=== PATIENT | female | born 1995 | race Two or more races ===

== ENCOUNTER 2018-06-18 08:55 | Inpatient (IN) | payer OTHER ==
[~2018-06-18] VITALS: Ht 154.9 cm; Wt 58.7 kg
[2018-06-18] VITALS (8 sets, daily range): BP systolic 95–112; BP diastolic 43–71
[~2018-06-18 08:55] MED LIST: GABAPENTIN100 MG ORAL; JUNEL FE 1.5 M1 EACH PO; NORCO 10/3251 EA ORAL; ceFAZolin sod 1 GM in NS 55 ML IVPB ONE
--- NOTE | 2018-06-18 10:31 | Pre-Procedure Note/Attestation ---
Pre-Procedure Note/Attestation Complete Prior to Procedure Procedure Narrative: L5S1 R redo lami/discectomy Indications for Procedure Pre-Operative Diagnosis: SP r L5S1 laminectomy with recurrent HNP Attestation I attest that I discussed the nature of the procedure; its benefits; risks and complications; and alternatives (and the risks and benefits of such alternatives ), prior to the procedure, with the patient (or the patient's legal benefits representative). I attest that, if there was a reasonable possibility of needing a blood transfusion, the patient (or the patient's legal benefits representative) was given the [facility] standardized written summary, pursuant to the [place] Blood Safety Act ([place] Health and Safety Code # 1645, as amended). I attest that I re-evaluated the patient just prior to the surgery and that there has been no change in the patient's H&P, except as documented below: Fermin Meeks MD Jun 18, 2018 10:31
[2018-06-18] MEDS ORDERED: Thrombin 5000 units spray kit TOPIC ONE (10:54)
[2018-06-18] MEDS ORDERED: Bupivacaine w/Epi 0.5% 30ml Vial INJ ONE (10:54)
[2018-06-18] MEDS ORDERED: Thrombin 5000 units TOPIC ONE (10:54)
[2018-06-18] MEDS ORDERED: Vancomycin 1gm vial IVPB ONE (10:54)
[2018-06-18] MEDS ORDERED: Gelfoam Size TOPIC ONE (10:54)
[2018-06-18] MEDS ORDERED: Gelfoam Absorbable 1gm powder pkt TOPIC ONE (10:55)
[2018-06-18] MEDS ORDERED: Bacitracin 50000 Units Vial ONE (10:55)
[2018-06-18] MEDS ORDERED: Lidocaine 1% MPF 10mg/ml 5ml ONE (11:49)
[2018-06-18] MEDS ORDERED: fentaNYL 100 mcg/2 mL IV ONE (11:51)
[2018-06-18] MEDS ORDERED: NS Irrig 1000ml IRRIG ONE (11:57)
[2018-06-18] MEDS ORDERED: Sterile Water Irrig 1000ml IRRIG ONE (12:00)
[2018-06-18] MEDS ORDERED: Neostigmine 1mg/ml 10ml Inj ONE (12:00)
[2018-06-18] MEDS ORDERED: Propofol 1,000mg/ 100ml btl IV ONE (12:00)
[2018-06-18] MEDS ORDERED: LR 1000ml ONE (12:00)
[2018-06-18] MEDS ORDERED: LR 1000ml 1,000 ML IVLG SCH (12:27)
[2018-06-18] MEDS ORDERED: Labetalol 5mg/ml 20ml vial IV PRN (12:30)
[2018-06-18] MEDS ORDERED: oxyCODONE HCL/Acetaminophen 5/325mg ORAL PRN (12:30)
[2018-06-18] MEDS ORDERED: Hydromorphone 0.5mg/0.5ml inj IVP PRN (12:30)
[2018-06-18] MEDS ORDERED: Metoclopramide 10mg/2ml Inj IVP PRN ×2 (12:30)
[2018-06-18] MEDS ORDERED: fentaNYL 100 mcg/2 mL IV PRN (12:30)
[2018-06-18] MEDS ORDERED: Meperidine 50mg/ml Inj(FOR RIGORS ONLY) IVP PRN (12:30)
[2018-06-18] MEDS ORDERED: Acetaminophen (Non formulary) 100 ML IV ONE (12:30)
[2018-06-18] MEDS ORDERED: Atropine Sulfate 0.4mg/ml inj IVP PRN (12:30)
[2018-06-18] MEDS ORDERED: DiphenhydrAMINE 50mg/ml Inj IVP PRN (12:30)
[2018-06-18] MEDS ORDERED: Milk of Magnesia 30ml Ud ORAL PRN ×2 (12:30→18:30)
[2018-06-18] MEDS ORDERED: LORazepam Inj 2mg/ml 1ml IV PRN (12:30)
[2018-06-18] MEDS ORDERED: Ketorolac 30mg Inj IV PRN ×2 (12:30)
[2018-06-18] MEDS ORDERED: HYDROcodone/Acetamin 7.5/325 tab ORAL PRN (12:30)
[2018-06-18] MEDS ORDERED: Midazolam 2mg/2ml Inj IVP PRN (12:30)
[2018-06-18] MEDS ORDERED: HYDROcodone/Acetamin 5/325 tab ORAL PRN (12:30)
--- NOTE | 2018-06-18 12:31 | Anethesia Preoperative Eval ---
Anesthesia Pre-op PMH/ROS General Date of Evaluation: Jun 18, 2018 Time of Evaluation: 11:52 Anesthesiologist: Natanael ASA Score: ASA 2 Mallampati Score Class I : Soft palate, uvula, fauces, pillars visible Class II: Soft palate, uvula, fauces visible Class III: Soft palate, base of uvula visible Class IV: Only hard plate visible Mallampati Classification: Class II Surgeon: Constantino Diagnosis: Back Pain Surgical Procedure: L5-S1 Redo Laminectomy, Discectomy Anesthesia History: none Family History: no anesthesia problems Allergies: Coded Allergies: No Known Allergies (Unverified , 10/15/13) Medications: see eMAR Patient NPO?: Yes NPO Date: Jun 17, 2018 NPO Time: 2200 Past Medical History Pulmonary: Reports: asthma PSxH Narrative: L5-S1 Lami 2014 Anesthesia Pre-op Phys. Exam Physician Exam Last Vital Signs Date Time Temp Pulse Resp B/P (MAP) Pulse Ox O2 Delivery O2 Flow Rate FiO2 06/18/18 10:09 98.4 96 20 111/71 (84) 100 06/18/18 09:43 Room Air Constitutional: NAD Neurologic: CN 2-12 intact Cardiovascular: RRR Respiratory: CTA Gastrointestinal: S/NT/ND Airway Exam Mallampati Score: Class II MO: full ROM: full Teeth: intact Anesthesia Pre-op A/P Labs Urine Test Test 06/18/18 09:15 Urine HCG, Qualitative Negative (NEGATIVE) Risk Assessment & Plan Assessment: ASA 2 Plan: GA, SED, GlideScope Go Pre-Antibiotics Dru Grams Ancef IV Given Within 1 Hr of Incision: Yes Time Given: 12:03 Tae Santoyo MD Jun 18, 2018 12:31
--- NOTE | 2018-06-18 12:33 | Immediate Post-Op Evaluation ---
Immediate Post-Op Evalulation Immediate Post-Op Evalulation Procedure: L5-S1 Redo Laminectomy, Discectomy Date of Evaluation: Jun 18, 2018 Time of Evaluation: 14:52 IV Fluids: 800 LR Blood Products: 0 Estimated Blood Loss: 50 Urinary Output: 250 Blood Pressure Systolic: 95 Blood Pressure Diastolic: 43 Pulse Rate: 62 Respiratory Rate: 16 O2 Sat by Pulse Oximetry: 100 Temperature (Fahrenheit): 99 Pain Score (1-10): 2 Nausea: No Vomiting: No Complications 0 Hydration Status: adequate Dru Grams Ancef IV Given Within 1 Hr of Incision: Yes Time Given: 12:03 Tae Santoyo MD Jun 18, 2018 12:33
--- NOTE | 2018-06-18 12:34 | Brief Operative Note ---
Immediate Post Operative Note Operative Note Pre-op Diagnosis: SP r L5S1 laminectomy with recurrent HNP Procedure: L5s1 R redo laminectomy and lysis of adhesions, osteotomy of calcified disc Post-op Diagnosis: same as pre-op Findings: consistent w/pre-op dx studies Surgeon: wilbert Search Coordinator: charanjit chavez Anesthesiologist: dianna Anesthesia: general Specimen: yes Complications: none Condition: stable Fluids: 800 Estimated Blood Loss: minimal Drains: none Implant(s) used?: No Fermin Meeks MD Jun 18, 2018 12:34
[2018-06-18] MEDS ORDERED: Lidocaine 1% Plain 30 ml INJ ONE (13:38)
[2018-06-18] MEDS ORDERED: Glycopyrrolate 0.2mg/ml 1ml Vial ONE (13:56)
--- NOTE | 2018-06-18 14:06 | NUR ---
*-* CASE MANAGEMENT NOTES *-* STEVETCAM ROSENBERG: PEMA FOR DISCHARGE PLANNING P:[phone] F:[phone] M-F [address]
[2018-06-18] MEDS ORDERED: Naloxone 0.4mg/ml Inj ONE (14:09)
--- NOTE | 2018-06-18 15:45 | NUR ---
NURSE NOTES:RECEIVED PATIENT FR. PACU BY BED S/P L5/S1 REDO LAMINECTOMY,AND LYSIS OF ADHESIONS,OSTEOTOMY OF CALCIFIED DISC.PATIENT AWAKE,A/OX4,ON 2LITERS N/C,MOVING ALL EXTREMITIES,PAIN LEVEL 5/10,MANAGEABLE,WAS MEDICATED PRIOR TO COMING TO FLOOR REPORTED BY BETTY RN.ICE PACK TO BACK.DRSNG.CLEAN/DRY/INTACT.IV SITE LEFT HAND#20 INTACT.POST OP ORDERS DISCUSSED WITH PATIENT AND FAMILY,VERBALIZED UNDERSTANDING.
--- NOTE | 2018-06-18 17:23 | Diagnostic Imaging Report ---
INDICATION: Pain, intraoperative TECHNIQUE: Intraoperative imaging Fluoroscopy time: 3 seconds Total dose: 0.90201 mGym2 Total number of images: One COMPARISON: None FINDINGS: Single intraoperative image demonstrates surgical tool projected posterior to what is presumably S1 IMPRESSION: Intraoperative imaging, as described
[2018-06-18] MEDS: Docusate 100mg cap ORAL SCH (18:02)
[2018-06-18] MEDS: D5 1/2NS 1,000 ML IV SCH (18:03)
[2018-06-18] MEDS ORDERED: Chloraseptic Spray 20mL Bottle ORAL PRN (18:30)
[2018-06-18] MEDS ORDERED: HYDROmorphone 1mg/ml Carpuject SUBQ SCH (18:32)
[2018-06-18] MEDS ORDERED: Methocarbamol 500mg tab ORAL PRN (18:45)
[2018-06-18] MEDS ORDERED: HYDROmorphone 1mg/ml Carpuject SUBQ PRN (18:45)
--- NOTE | 2018-06-18 18:45 | Operative Note - Dictated ---
DATE OF OPERATION: 06/18/2018 PREOPERATIVE DIAGNOSIS: Status post L4-5, L5-S1 laminectomy and diskectomy with recurrent disc herniation and right lower extremity radiculopathy. POSTOPERATIVE DIAGNOSES: 1. Status post L4-5, L5-S1 laminectomy and diskectomy with recurrent disc herniation and right lower extremity radiculopathy. 2. Calcified disc extrusion. OPERATION PERFORMED: 1. Dissection through scarred and altered anatomy. 2. Redo laminectomy, L5. 3. Redo laminectomy 50% S1. 4. Lysis of adhesions. 5. Exploration of nerve roots with removal of epidural scarring. 6. Diskectomy L5-S1 right side. 7. Osteotomy of calcified disc at L5-S1. 8. Foraminotomy L5-S1. 9. Neurodiagnostic monitoring. 10. Use of operating microscope. 11. Use of fluoroscopy for localization purposes. ESTIMATED BLOOD LOSS: Minimal. COMPLICATIONS: None. FINDINGS: 1. Markedly swollen S1 nerve root, right side. 2. Calcified disc herniation/extrusion at L5-S1. 3. Markedly degenerated disc at L5-S1. RISK NOTE: The patient was explained in detail risks and benefits of surgery to include, but not be limited to those of bleeding, infection, damage to nerves, vessels, tendons, anesthetic risk, allergic reaction, aspiration, and possibly . The patient understood and wished to proceed. INDICATIONS: The patient is a 23-year-old, who previously had, had 2 disc herniations at L4-L5 and L5-S1. She underwent prior right-sided hemilaminectomy and microdiskectomy at these levels. Over the course of last 6 months, she has developed recurrence of her pain. She has tried with epidural injections without substantial resolution of symptoms. At this point, she came in with a large disk extrusion on the right side with severe neuropathic pain and has failed conservative treatments. OPERATIVE PROCEDURE IN DETAIL: The patient was taken to the operating suite. After general endotracheal anesthesia was obtained, Gaxiola catheter was placed. She was turned prone onto a Viktor frame. The back was prepped and draped in usual sterile fashion. Prior incision was infiltrated with Marcaine with epinephrine. Incision was sharply carried down from S1 through bottom of L4. Subperiosteal dissection was carried out on the right side. Extensive scarring was noted. The L4-5 facet joint was used as a marker and a probe was placed adjacent to the facet at this level was indeed verified. At this point, a very meticulous dissection was carried out at L5-S1 first to identify the remaining portions of the lamina and differentiating the scar off of the lamina. We were able to then dissect the scar tissue off of the lamina of L5 as well as the lamina of S1. High-speed drill was then used to thin out the lamina of L5 and S1 and to perform a partial medial facetectomy. Curved curette was then used to dissect the interval between the lamina as well as the epidural space. A 3 and 4 Kerrison punches were then used to dissect off the bone and perform a complete hemilaminectomy of the distal 2/3 of L5 and proximal 1/2 to 2/3 of S1. Ligamentum flavum was minimally present. I was able to dissect the S1 nerve and mobilized medially. Immediately, I was impressed with how swollen and indurated the S1 nerve root was. Initially, I probed this area thinking there may be a disk herniation both in the axilla lateral to and anterior to the S1 nerve root. However, no disc fragment could be identified. This dissection was then further mobilized proximally and a large calcified disc herniation was identified at the level of the disk. At this point, with down-angled curettes, I was able to osteotomize and remove a substantial portion of that calcified disc herniation/osteophyte. Then with the scalpel, I was able to dissect into the disk space and with angled straight and reverse angled pituitaries, a generous diskectomy was performed. The neural foramen was probed free throughout the procedure. An extensive amount of scar tissue was encountered and a very meticulous neurolysis was performed in order to identify the various intervals between dura, scar, disk, and bone. Once satisfied with the decompression, a Valsalva was performed and noted to be negative. Copious intradiscal irrigation was performed. A 500 mg of vancomycin powder was placed deep to the fascia. Fascia was repaired using #1 Vicryl subcutaneous closure using 2-0 Vicryl. Dermabond and sterile dressing was applied. At this time, we are awaiting extubation. Sponge and needle counts were correct. Neurodiagnostic monitoring remained stable throughout the procedure. [facility] Jaden Meeks DR: DENNIS JOB#: [id number] CC:
--- NOTE | 2018-06-18 18:52 | Cardiology Progress Note ---
Assessment/Plan Assessment/Plan [id number] Objective Last 24 Hour Vital Signs Date Time Temp Pulse Resp B/P (MAP) Pulse Ox O2 Delivery O2 Flow Rate FiO2 06/18/18 15:45 98.2 72 20 112/67 (82) 99 06/18/18 15:45 Nasal Cannula 2.0 Nasal Cannula 2.0 06/18/18 15:15 81 16 111/67 100 Nasal Cannula 3 06/18/18 15:00 68 16 96/49 100 Simple Mask 8 06/18/18 14:51 70 16 95/46 100 Simple Mask 8 06/18/18 14:46 71 16 95/44 100 Simple Mask 8 06/18/18 14:41 99.0 65 16 95/43 100 Simple Mask 8 06/18/18 14:37 62 16 100 06/18/18 10:09 98.4 96 20 111/71 (84) 100 06/18/18 09:43 Room Air Laboratory Tests Test 06/18/18 09:15 Urine HCG, Qualitative Negative (NEGATIVE) Jon Gamble MD Jun 18, 2018 18:52
--- NOTE | 2018-06-18 19:00 | NUR ---
NURSE NOTES:SEEN BY DR. GARY,ORDERS CARRIED OUT.MEDICATED WITH DILAUDID 1MG SUBQ FOR PAIN 10/12.
--- NOTE | 2018-06-18 19:30 | NUR ---
NURSE NOTES: Report taken from CELI Ch. Patient is awake and in bed, A&Ox4. Parents at the bed side. Showing no signs of distress on 2L NC, stats within normal limits. Having some minimal pain 3/10 radiating down the right leg. Surgical site c/d/i, continue to monitor. Patient tolerated meals well, will advance to regular diet in the morning. IV site c/d/i and patent, 20g left hand. Gaxiola is c/d/i and patent, flowing clear yellow urine, order to D/C at 0600 06/19. Bed in lowest position, call light within reach. Addendum: 06/18/18 at 2133 by Harvey Cohn RN Gaxiola to be D/C 06/19 during the day, not at 0600.
--- NOTE | 2018-06-18 19:35 | NUR ---
HAND-OFF: Report given to RHEA ALATORRE.PATIENT STABLE.
[2018-06-18] MEDS: ceFAZolin sod 1 GM in D5W 55 ML IV SCH (20:06)
--- NOTE | 2018-06-18 20:30 | Consultation ---
DATE OF CONSULTATION: 06/18/2018 CARDIOLOGY CONSULTATION CONSULTING PHYSICIAN: Jon Gamble M.D. REFERRING PHYSICIAN: Fermin Meeks M.D. REASON FOR REFERRAL: Postoperative medical care. HISTORY OF PRESENT ILLNESS: This is a young female, who had disk protrusion at L5-S1 central right sided and underwent redo laminectomy and diskectomy today by Dr. Meeks. I am seeing her postoperatively. She denies any chest pain, shortness of breath, palpitations, dizziness or lightheadedness. She does have some discomfort from surgery otherwise she seemed to be doing well. There is a minimal sore throat at this time. PAST MEDICAL HISTORY: Fairly unremarkable. She just has chronic back pain that she has had since younger age. No diabetes. No high blood pressure. No heart attack. She does have a history of asthma. No hepatitis or tuberculosis. No ulcers. No kidney problems, liver problems, thyroid problems, anemia, arthritis, HIV, AIDS, or blood clots or any gynecological issues. ALLERGIES: She is not allergic to any medication. SOCIAL HISTORY: She does not smoke. Does not use drugs. Socially drinks alcoholic beverages. REVIEW OF SYSTEMS: GASTROINTESTINAL: Negative. GENITOURINARY: Negative although she does have a Gaxiola catheter. PULMONARY: Negative. CONSTITUTIONAL: Negative. NEUROLOGIC: Negative. PHYSICAL EXAMINATION: GENERAL: Shows to be young female, in no respiratory distress, lying down approximately 10 degrees head of bed elevation. NECK: Supple. No jugular venous distention. LUNGS: Clear to auscultation and percussion. CARDIAC: S1 is normal. S2 is normal. Regular rate and rhythm. No heaves, thrills, or gallops noted. ABDOMEN: Soft, nontender. Positive bowel sounds. EXTREMITIES: There is no edema. Pneumatic compression stockings are in place. Excellent pulses distally. She is awake alert and oriented. She is moving all four extremities. LABORATORY VALUES: None postoperative. Preoperative laboratories were reviewed. INR 1 and PTT of 33. Urinalysis appears unremarkable. Her blood sugar was 61 and creatinine of 0.6, and her potassium was 4.3. White count of 9.1, hemoglobin 13, and platelet count of 257. Preop EKG shows normal sinus rhythm, some nonspecific T-wave changes, heart rate was borderline tachycardia. [place] is normal. Chest x-ray performed shows no active cardiopulmonary changes. ASSESSMENT/PLAN: 1. Disk protrusion L5-S1 status post redo laminectomy and diskectomy. 2. History of asthma. This patient was seen in cardiac consultation. The patient is doing relatively well. Postoperative pain management to be provided by Dr. Sotomayor and she would have incentive spirometer for atelectasis prevention and DVT prophylaxis with pneumatic compression stockings. Ambulation as allowed by Dr. Meeks and hopefully she will be ready to be discharged home by the morning. Jon Gamble M.D. DR: Yonathan JOB#: [id number] CC:
[2018-06-18] MEDS: HYDROcodone/Acetamin 10/325 tab ORAL PRN (23:02)
[2018-06-19] VITALS: BP 102/63
[2018-06-19] MEDS: D5 1/2NS 1,000 ML IV SCH ×2 (00:52→07:57)
--- NOTE | 2018-06-19 01:00 | Consultation ---
DATE OF CONSULTATION: 06/18/2018 CONSULTING PHYSICIAN: Omar Sotomayor M.D. REFERRING PHYSICIAN: Fermin Meeks M.D. REASON FOR CONSULTATION: Acute pain consult. HISTORY OF PRESENT ILLNESS: Dear Dr. Fermin Meeks, Thank you kindly for consulting me to evaluate and render an opinion as to how to proceed in the management of the patient's acute postoperative revision lumbar spine pain status post revision lumbar spine surgery today. The patient is a very pleasant 23-year-old woman, who I saw at the bedside with her parents and observation assistant, Dr. Gamble. 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 Back in 2013, she underwent a decompressive lumbar spine surgery. Unfortunately, she required revision lumbar spine surgery with lysis of adhesions today for persistent pain complaints. You consulted me to help with her pain control postoperatively. I saw the patient at the bedside with her parents. I performed a detailed history and physical examination. I spent over 75 minutes in consultation with an additional 30 minutes in medical record review. PAST MEDICAL HISTORY: 1. Acute postoperative lumbar spine pain, status post revision lumbar spine surgery by Dr. Fermin Meeks in June 2018. 2. Chronic lumbar spine pain. PAST SURGICAL HISTORY: Lumbar spine decompressive surgery by Dr. Fermin Meeks in 2013. MEDICATIONS AT HOME: Gabapentin, tramadol, methocarbamol, and Robaxin 500 mg b.i.d. p.r.n.. ALLERGIES: No known drug allergies. SOCIAL HISTORY: The patient is accompanied at the bedside by her parents. 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 She denies tobacco usage. FAMILY HISTORY: Noncontributory. REVIEW OF SYSTEMS: Per Dr. Gamble. PHYSICAL EXAMINATION: VITAL SIGNS: Age 23, height 5 feet 0 inches, and weight 119 pounds. Body mass index 22. VITAL SIGNS: She has pain level 9/10 on the visual analog pain scale. Afebrile, Pulse 72, respirations 20, oxygen saturation 99% on room air, and blood pressure 112/67. HEENT: Normocephalic and atraumatic. No Zuleta's palsy. No Bryan syndrome. CHEST: Clear to auscultation. HEART: Regular rate and rhythm. ABDOMEN: Soft. BACK: Lumbar spine painful by incision with minimal paraspinal muscle spasms appreciated. BREASTS/GENITOURINARY: Deferred to Dr. Gamble. DIAGNOSTIC TESTING: Preoperatively dated 06/13/2018 shows urinalysis negative. BUN 7, creatinine 0.6, and bicarb 21. Total bilirubin 0.2. AST 22, AST 16, albumin 4.4, and alkaline phosphatase 123. Calcium 9.2. Chloride 102. Glucose 61 and potassium 4.0. Total protein 7.1. Sodium 136. Hematocrit 38, white count 9, and platelets 260,000. A 12-lead EKG shows normal sinus rhythm and ventricular rate 100 . No evidence for acute cardiac ischemia dated 06/12/2018. Preoperative chest x-ray shows no acute cardiopulmonary disease dated 06/14/2018. MRI lumbar spine dated 02/19/2018 impression L5-S1 shows likely underlying granulation tissue with mild diffuse disk bulge and facet arthropathy resulting in mild right-sided foraminal narrowing. IMPRESSION: 1. Acute postoperative lumbar spine pain, status post revision lumbar spine surgery by Dr. Fermin Meeks in June 2018. 2. Chronic lumbar spine pain. TREATMENT RECOMMENDATIONS: I spoke with the orthopedic floor nurse RNJing after I evaluated the patient at the bedside and I have asked for an immediate dose of subcutaneous Dilaudid 1 mg for catch-up dosing. The patient has been using methocarbamol or Robaxin 500 mg a couple times per day preoperatively. I have increased the frequency to every 8 hours p.r.n. for muscle spasms. The patient believes she has tolerated morphine in the past, but did not think the dosing was strong-enough. Therefore, I have selected the Dilaudid injection, which I will continue 1 mg every three hours p.r.n. for severe breakthrough pain. The patient does state that she has been using tramadol. Although this is a weak agent and I would recommend instead to use hydrocodone 10/325 tablets orally every three hours p.r.n. for ufna-mp-ayptxgnm pain. The patient has tolerated this medication in the past without adverse side effects. In case of any nausea symptoms postoperatively, I have ordered Zofran 4 mg intravenously every 4 hours p.r.n. as a first-line agent. Reglan is available as a second-line agent. I have ordered Benadryl 25 mg every 6 hours in case of any itching complaints. I have ordered Chloraseptic spray for topical sore throat complaints if the patient has any these complaints postoperatively. I have also placed the patient on Pepcid 20 mg b.i.d. along with a p.r.n. dose of Mylanta for any GERD symptom exacerbation, and for GI ulcer prophylaxis. Incentive spirometer has already been ordered to encourage good pulmonary toilet. I will defer DVT prophylaxis to the surgeon. I did leave a prescription with the father for [place] and Robaxin, for 60 tablets of each for outpatient usage. Omar Sotomayor M.D. DR: DAISHA JOB#: [id number] CC:
[2018-06-19 04:00] VITALS: BP 104/63
[2018-06-19] MEDS: ceFAZolin sod 1 GM in D5W 55 ML IV SCH ×2 (04:04→11:40)
[2018-06-19] MEDS: HYDROcodone/Acetamin 10/325 tab ORAL PRN ×3 (04:17→13:32)
--- NOTE | 2018-06-19 07:27 | NUR ---
NURSE NOTES:RECEIVED REPORT FR. RHEA ALATORRE.PATIENT A/OX4,ROOM AIR,BACK DRSNG.CLEAN/DRY/INTACT.ICE PACK APPLIED,MOVING ALL EXTREMITIES,RIGHT LEG PAIN MUCH IMPROVED,PAIN REGIMEN ,PLAN OF CARE DISCUSSED,VERBALIZED UNDERSTANDING.FAMILY AT BEDSIDE.
--- NOTE | 2018-06-19 07:27 | NUR ---
HAND-OFF: Report given to CELI Ch. Patient is awake and in bed, VSS.
[2018-06-19] MEDS: Docusate 100mg cap ORAL SCH ×2 (07:56→17:30)
[2018-06-19 08:00] VITALS: BP 97/61
--- NOTE | 2018-06-19 08:33 | 48 Hour Post Anesthesia Eval ---
Post Anesthesia Evaluation Procedure: L5-S1 Redo Laminectomy, Discectomy Date of Evaluation: Jun 19, 2018 Time of Evaluation: 06:35 Blood Pressure Systolic: 104 0: 63 Pulse Rate: 57 Respiratory Rate: 17 Temperature (Fahrenheit): 97.4 O2 Sat by Pulse Oximetry: 100 Airway: patent Nausea: No Vomiting: No Pain Intensity: 2 Hydration Status: adequate Cardiopulmonary Status: Stable Mental Status/LOC: patient returned to baseline Follow-up Care/Observations: 0 Post-Anesthesia Complications: 0 Follow-up care needed: N/A Tae Santoyo MD Jun 19, 2018 08:33
--- NOTE | 2018-06-19 08:45 | NUR ---
NURSE NOTES:MEDICATED WITH NORCO PO PRIOR TO PT ACTIVITY,TOLERATED X 1ROUNDS.SEEN BY DR. REILLY,UPDATED PATIENTS STATUS.
--- NOTE | 2018-06-19 09:23 | Orthopedic Spine Progress Note ---
Ortho Spine - Progress Note Subjective Symptoms: c/o post-op back pain, improved - as compared to pre-op Objective Vital Signs: Last 24 Hour Vital Signs Date Time Temp Pulse Resp B/P (MAP) Pulse Ox O2 Delivery O2 Flow Rate FiO2 06/19/18 08:33 57 17 100 06/19/18 08:00 Room Air 06/19/18 08:00 98.1 60 17 97/61 (73) 100 06/19/18 04:00 97.4 57 17 104/63 (77) 100 06/19/18 00:00 97.9 64 18 102/63 (76) 100 06/18/18 21:00 Nasal Cannula 2.0 06/18/18 20:00 97.6 73 18 99/62 (74) 99 06/18/18 15:45 98.2 72 20 112/67 (82) 99 06/18/18 15:45 Nasal Cannula 2.0 Nasal Cannula 2.0 06/18/18 15:15 81 16 111/67 100 Nasal Cannula 3 06/18/18 15:00 68 16 96/49 100 Simple Mask 8 06/18/18 14:51 70 16 95/46 100 Simple Mask 8 06/18/18 14:46 71 16 95/44 100 Simple Mask 8 06/18/18 14:41 99.0 65 16 95/43 100 Simple Mask 8 06/18/18 14:37 62 16 100 06/18/18 10:09 98.4 96 20 111/71 (84) 100 06/18/18 09:43 Room Air I&O: Intake and Output 06/18/18 06/19/18 19:00 07:00 Intake Total 1000 ml 240 ml Output Total 300 ml 2150 ml Balance 700 ml -1910 ml Intake Oral 240 ml IV Total 1000 ml Output Urine Total 250 ml 2150 ml Estimated Blood Loss 50 ml Wound: clean, intact Drains: none Neuro Status: stable Assessment Procedure Performed: L5s1 R redo laminectomy and lysis of adhesions, osteotomy of calcified disc Plan Plan: PT, pain management, discharge plan Fermin Meeks MD Jun 19, 2018 09:23
[2018-06-19 12:27] VITALS: BP 98/58
--- NOTE | 2018-06-19 12:30 | NUR ---
NURSE NOTES:MESSAGE LEFT TO DR. TREJO AND SPOKE TO KEN,AWAITING FOR CALL BACK.ENDORSED TO TYSON RN(CHARGE)TO UPDATE MD FOR LOW BP(93/58)PATIENT ASYMPTOMATIC.ON CURRENT IV FLUID AND WITH GOOD PO INTAKE.
--- NOTE | 2018-06-19 12:48 | NUR ---
CASE MANAGEMENT:REVIEW 06/18/18 23 YR OLD FEMALE HERE FOR ELECTIVE SURGERY SI: RECURRENT DISC HERNIATION AND RLE RADICULOPATHY 98.4 96 20 111/71 100% ON RA IS: TO SURGERY: REDO LAMINECTOMY. LYSIS OF ADHESIONS IV ANCEF Q8HRS : TO MED/SURG POST OP INTERQUAL CRITERIA MET 06/19/18 SI: POD #1 97.8 66 18 98/58 97% ON RA IS: PEPCID PO BID DILAUDID SQ Q3HRS PRN NORCO PO Q3HRS PRN NEURONTIN PO TID IVF@100/HR : MED/SURG STATUS 3 [facility]
--- NOTE | 2018-06-19 13:14 | NUR ---
P.T Note:late entry 0940 P.T evaluation completed and treatment initiated per spinal protocol. Please refer to P.T evaluation for current functional status. Skilled P.T service is warranted to ensure safety and compliance with spinal precaution when performing ADL/functional mobilities. Thank you for this referral.
[2018-06-19] MEDS ORDERED: Hydromorphone 0.5mg/0.5ml inj SUBQ SCH (13:30)
--- NOTE | 2018-06-19 13:30 | NUR ---
NURSE NOTES:ORTHOSTATIC BP:STANDIN/60,HR:73,SITTIN/59,HR:75,SEEN BY DR. GARY MADE AWARE,STATED "ITS OKAY,CARMEN NOT WORRIED SHES YOUNG,JUST D/C ESPINAL CATH AND GIVE DILAUDID"INFORMED THAT PATIENT DONT WANT DILAUDID SUBQ AT THIS TIME AND WANTS NORCO PILL.PAIN LEVEL 4/10.TEDDY D/CD.
[2018-06-19] MEDS ORDERED: HYDROmorphone 1mg/ml Carpuject SUBQ PRN (15:45)
--- NOTE | 2018-06-19 15:50 | NUR ---
*-* INSURANCE *-* [employer] NCM: [place] P:[phone] F:[phone] REF# [id number] M-F 10-[facility]
[2018-06-19 16:00] VITALS: BP 94/54
--- NOTE | 2018-06-19 16:30 | Progress Note ---
DATE: 06/19/2018 ACUTE PAIN MANAGEMENT PHYSICIAN PROGRESS NOTE. MEDICATIONS: Medication administration record reviewed. Medications include IV fluids, Colace, Pepcid Neurontin. As needed medications include Reglan, Tylenol, Zofran, Benadryl, Chloraseptic spray, Mylanta, milk of magnesia, Callaway, Dilaudid, Robaxin. OBJECTIVE: VITAL SIGNS: Afebrile, pulse 66, respirations 18, blood pressure 98/58, pulse ox 97% on room air. LABORATORY STUDIES: No interval laboratory studies. I saw the patient at bedside with her mother. Dr. Meeks, surgery evaluated the patient earlier this morning and was pleased with the progress. The patient did have some mild dizziness with ambulation earlier. She has been rather stoic using her pain medications. I did encourage her to be a little more generous with the pain medication since this is revision surgery and we would not wish to retard her progress in physical therapy and ambulation due to pain. The patient understood. I did leave a prescription for Callaway and Robaxin for outpatient usage already. The patient has great social support with her mother and father who will assist with activities of daily living. They also have an [id number] lumbar back brace to be used p.r.n. as well. The patient is tolerating advancing diet. She has no nausea symptoms. I have asked the nurse to discontinue the Gaxiola catheter, Hep-Lock her IV, and encourage ambulation with physical therapy. We will evaluate the patient again later this morning. The patient already walked 100 feet earlier today. I would expect discharge home within next 24 hours. Omar Sotomayor M.D. DR: Willard JOB#: [id number] CC:
[2018-06-19] MEDS ORDERED: NORCO 10-325 T1 EACH ORAL (17:54)
[2018-06-19] MEDS ORDERED: METHOCARBAMOL500 MG ORAL (17:55)
--- NOTE | 2018-06-19 18:00 | NUR ---
NURSE NOTES:D/C INSTRUCTIONS GIVEN INCLUDING RX,LIST OF BELONGINGS,VERBALIZED UNDERSTANDING.TO HOME BY PRIVATE VEHICLE WITH PARENTS. NOTIFIED RE:DISCHARGE.DRESSING CLEAN RAMÍREZ,INTACT.ADDITIONAL DRSNG GIVEN AND INSTRUCTION HOW TO CHANGE PROVIDED,VERBALIZED UNDERSTANDING.
--- NOTE | 2018-06-19 19:04 | NUR ---
NURSE NOTES: d/c to home stable.brought down to lobby by wheelchair,accompanied by mo and ramón ozuna.
--- NOTE | 2018-06-20 09:54 | Discharge Summary ---
Discharge Summary Discharge Summary _ DATE OF ADMISSION: 06/18/2018 DATE OF DISCHARGE: 06/19/2018 DISCHARGED BY: Dr. Fermin Meeks REGISTERED NURSE SUPERVISOR: Dr. Omar Gamble BRIEF HOSPITAL COURSE: Patient is a 23-year-old female, who previously had 2 disc herniations at L4-L5 and L5-S1. She underwent prior right-sided hemilaminectomy and microdiscectomy. Over the course of 6 months. She had developed recurrence of pain. She had tried epidural injections without substantial resolution of symptoms. She was admitted on 06/18/2018 and underwent redo laminectomy on L5 and 50% S1 with lysis of adhesions. She tolerated procedure well. Surgery was uneventful. Post-operatively, patient was admitted for post-op care. 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 She was placed on SCDs for DVT prophylaxis and was encouraged use of incentive spirometer. Patient was given pain management. She was seen by PT. Diet was advanced. Incision was clean, dry and intact. Gaxiola catheter was removed. Patient was ambulating well with good pain control and was tolerating diet. Patient was eventually cleared for discharge home. POSTOPERATIVE DIAGNOSES: 1. Status post L4-5, L5-S1 laminectomy and diskectomy with recurrent disc herniation and right lower extremity radiculopathy. 2. Calcified disc extrusion. OPERATION PERFORMED: 1. Dissection through scarred and altered anatomy. 2. Redo laminectomy, L5. 3. Redo laminectomy 50% S1. 4. Lysis of adhesions. 5. Exploration of nerve roots with removal of epidural scarring. 6. Diskectomy L5-S1 right side. 7. Osteotomy of calcified disc at L5-S1. 8. Foraminotomy L5-S1. 9. Neurodiagnostic monitoring. 10. Use of operating microscope. 11. Use of fluoroscopy for localization purposes. (Refer to Operative Report) DISCHARGE DISPOSITION: Patient was discharged home. DISCHARGE MEDICATIONS: Refer to Medication Reconciliation Sheet. DISCHARGE INSTRUCTIONS: Post-op instructions given. Follow-up in a week. I have been assigned to complete a DC summary on this account, I was not involved with the patient's management. Shonna Tejada NP Jun 20, 2018 09:54
--- NOTE | 2018-06-20 10:20 | NUR ---
*-* INSURANCE *-* DISCHARGE SUMMARY HAS BEEN FAXED TO: CHAPIS ROSENBERG: [place] P:[phone] F:[phone] REF# [id number] M-F 10-06 [facility]
== END 2018-06-19 19:03 | disposition home or self-care (01) | DRG 520 ==
LOC: SDSOVERFLO 08:59 → 3E 15:33
PROC: 0SB40ZZ Excision of Lumbosacral Disc, Open Approach (ICD-10-PCS; principal; 2018-06-18 11:30)
PROC: 01NB0ZZ Release Lumbar Nerve, Open Approach (ICD-10-PCS; principal; 2018-06-18 11:30)
PROC: 01NR0ZZ Release Sacral Nerve, Open Approach (ICD-10-PCS; principal; 2018-06-18 11:30)
DX: M51.16 Intervertebral disc disorders with radiculopathy, lumbar region (principal); M51.17 Intervertebral disc disorders with radiculopathy, lumbosacral region; Z98.1 Arthrodesis status
CPT/HCPCS: 36415; 72020; 76000; 81025; 86850; 86900; 86901; 87081; 94003; 94150; J2405; J2710